=== PATIENT | male | born 1980 | race Hispanic/Latino ===

== ENCOUNTER 2023-02-01 14:58 | Inpatient (IN) | payer SELFPAY ==
[~2023-02-01 14:58] MED LIST: Iopamidol 300 61% 100 ML VIAL FS ONE
[2023-02-01 15:38] LABS: #Basophils 0.1 10x3/uL (0.0-0.2); #Eosinphils 0.1 10x3/uL (0.0-0.5); #Monocytes 0.9 10x3/uL (0.0-1.1); #Neutrophils 8.4 10x3/uL (1.5-8.4); %Basophils 0.6 % (0.0-2.0); %Eosinophils 1.1 % (0.0-6.0); %Lymphocytes 16.1 % (18.0-47.0); %Monocytes 8.2 % (0.0-10.0); %Neutrophils 73.6 % (40.0-75.0); Hematocrit 41.6 % (38.8-50.0); Hemoglobin 13.7 g/dL (13.5-17.5); Mean Corpuscular HGB CONC 32.9 g/dL (32.0-36.0); Mean Corpuscular Hemoglobin 26.4 pg (27.0-33.0); Mean Corpuscular Volume 80.2 fl (81.2-95.1); Mean Platelet Volume 10.4 fl (7.4-10.4); Platelet Count 295 10x3/uL (150-450); RBC Distribution Width 12.6 % (11.5-14.5); Red Blood Cell (RBC) Count 5.19 10x6/uL (4.32-5.72); White Blood Cell (WBC) Count 11.4 10x3/uL (3.5-10.5)
[2023-02-01 16:06] LABS: Troponin I Less than 0.010 ng/mL (< 0.028)
[2023-02-01 16:08] LABS: ALT (SGPT) 53 U/L (8-55); AST (SGOT) 31 U/L (5-34); Albumin 3.8 g/dL (3.5-5.0); Alkaline Phosphatase 72 U/L (40-110); Anion Gap 17 mmol/L (10-20); BUN (Urea Nitrogen) 10 mg/dL (8.9-20.6); Bilirubin, Total 0.5 mg/dL (0.2-1.2); Calc. Creatinine Clearance 0 mL/min (70-130); Carbon Dioxide 23 mmol/L (22-29); Chloride 102 mmol/L (98-107); Estimated GFR 111; Globulin 2.5 g/dL (2.4-3.5); Glucose 199 mg/dL (70-105); Lipase 9 U/L (8-78); Potassium 3.6 mmol/L (3.5-5.1); Protein, Total 6.3 g/dL (6.0-8.3); Sodium 138 mmol/L (136-145)
[2023-02-01 16:33] LABS: Bilirubin Neg (Negative); Blood, Urine Negative (Negative); Clarity Clear (Clear); Glucose, Urine (Dipstick) Normal (Negative); Ketone, Urine Negative (Negative); Leukocyte Negative (Negative); Nitrite Negative (Negative); Protein, Urine (Dipstick) 15 mg/dl (Neg-Trace)
[2023-02-01] MEDS ORDERED: Morphine 4 MG/ML VIAL ONE (16:33)
[2023-02-01] MEDS ORDERED: Piperacillin/Tazobactam 3.375 GM VIAL ONE (16:34)
[2023-02-01] MEDS ORDERED: Ondansetron PF 4 MG/2 ML Vial ONE ×2 (16:34→17:06)
[2023-02-01 16:50] LABS: Bacteria/HPF Rare-Few HPF (None Seen); CAUTI Indications for Culture Pelvic or flank pain; RBC/HPF 0-3 HPF (0-3); Squamous Epithelial 0-3 HPF (0-3); WBC/HPF 0-3 HPF (0-3)
[2023-02-01 16:51] LABS: Urine Culture Reflex No No
[2023-02-01] MEDS ORDERED: Promethazine HCl 25 MG/ML VIAL IM PRN (16:57)
[2023-02-01] MEDS ORDERED: PACU-Morphine 4MG/ML VIAL SLOW IVP PRN (16:57)
[2023-02-01] MEDS ORDERED: Ondansetron HCl/PF 4 MG/2 ML Vial IVP PRN (16:57)
[2023-02-01] MEDS ORDERED: Meperidine HCl/PF 25 MG/ML VIAL SLOW IVP PRN (16:57)
[2023-02-01] MEDS ORDERED: Succinylcholine 200 MG/10 ml SYRINGE FS ONE (17:06)
[2023-02-01] MEDS ORDERED: Rocuronium Bromide 10 MG/ML (10ML VIAL) ONE (17:06)
[2023-02-01] MEDS ORDERED: Lidocaine 1% PF 5 ML VIAL ONE (17:06)
[2023-02-01] MEDS ORDERED: Dexamethasone 4 mg/ml Vial ONE (17:06)
[2023-02-01] MEDS ORDERED: Glycopyrrolate 0.2 MG/ML 5 ML SYRINGE ONE (17:07)
[2023-02-01] MEDS ORDERED: PROPOFOL 40 ML ONE (17:07)
[2023-02-01] MEDS ORDERED: fentaNYL 50 mcg/mL 1 mL Vial ONE (17:07)
[2023-02-01] MEDS ORDERED: Bupivacaine HCl 0.5%/Epinephrine 1:200,000/PF 30 ml Vial ONE (17:20)
[2023-02-01] MEDS ORDERED: Ketorolac Tromethamine 30 MG/ML VIAL ONE (19:22)
[2023-02-01] MEDS ORDERED: Ondansetron PF 4 MG/2 ML Vial IVP PRN (19:28)
[2023-02-01 21:22] VITALS: BMI 32.7
[2023-02-01] MEDS ORDERED: Lactated Ringer's 1,000 ML IV SCH (22:00)
[2023-02-01] MEDS: Acetaminophen 325 MG TAB PO SCH (22:04)
[2023-02-01] MEDS: Piperacillin/Tazobactam 3.375 GM in Sodium Chloride 0.9% 100 ML IVPB SCH (22:06)
[2023-02-02] MEDS: Ketorolac Tromethamine 30 MG/ML VIAL IVP SCH ×4 (02:02→20:15)
[2023-02-02] MEDS: Acetaminophen 325 MG TAB PO SCH ×4 (04:23→20:05)
[2023-02-02] MEDS: Piperacillin/Tazobactam 3.375 GM in Sodium Chloride 0.9% 100 ML IVPB SCH ×3 (06:11→22:44)
[2023-02-03] MEDS: Acetaminophen 325 MG TAB PO SCH ×3 (03:43→10:18)
[2023-02-03] MEDS: Ketorolac Tromethamine 30 MG/ML VIAL IVP SCH ×2 (03:55→10:17)
[2023-02-03] MEDS: Piperacillin/Tazobactam 3.375 GM in Sodium Chloride 0.9% 100 ML IVPB SCH (06:43)
[2023-02-03 11:46] VITALS: BP 121/76; TEMP 98.4
== END 2023-02-03 13:15 | disposition home or self-care (01) | DRG 340 ==
LOC: CSHERS 14:58 → CSHTELE 20:29 → INTOOBSV 20:29 → OBSVTOIN 02-02 11:05
PROVIDERS: ADMIT Surgery; ATTEND Surgery
PROC: 0DTJ4ZZ Resection of Appendix, Percutaneous Endoscopic Approach (ICD-10-PCS; principal; 2023-02-02)
PROC: 0W9G4ZZ Drainage of Peritoneal Cavity, Percutaneous Endoscopic Approach (ICD-10-PCS; 2023-02-02)
DX: K35.33 Acute appendicitis with perforation, localized peritonitis, and gangrene, with abscess (principal); E66.01 Morbid (severe) obesity due to excess calories; Z82.49 Family history of ischemic heart disease and other diseases of the circulatory system; Z83.3 Family history of diabetes mellitus; Z68.32 Body mass index [BMI] 32.0-32.9, adult
CPT/HCPCS: 36415; 71045; 74177; 80053; 81001; 83605; 83690; 84484; 85025; 87040; 88304; 93005; J1100; J1650; J1885; J2270; J2405; J2543; J2704; J3010; J3490; J7120; Q9967

== ENCOUNTER 2023-02-21 23:06 | Emergency (ER) | payer SELFPAY ==
[2023-02-22 00:15] LABS: ALT (SGPT) 38 U/L (8-55); AST (SGOT) 18 U/L (5-34); Albumin 3.9 g/dL (3.5-5.0); Alkaline Phosphatase 83 U/L (40-110); Anion Gap 15 mmol/L (10-20); BUN (Urea Nitrogen) 8 mg/dL (8.9-20.6); Bilirubin, Total 0.7 mg/dL (0.2-1.2); Calc. Creatinine Clearance 0 mL/min (70-130); Calcium 9.3 mg/dL (7.8-10.44); Carbon Dioxide 23 mmol/L (22-29); Chloride 103 mmol/L (98-107); Estimated GFR 115; Globulin 3.4 g/dL (2.4-3.5); Glucose 128 mg/dL (70-105); Potassium 3.7 mmol/L (3.5-5.1); Protein, Total 7.3 g/dL (6.0-8.3); Sodium 137 mmol/L (136-145)
[2023-02-22 00:18] LABS: #Basophils 0.1 10x3/uL (0.0-0.2); #Eosinphils 0.1 10x3/uL (0.0-0.5); #Monocytes 1.4 10x3/uL (0.0-1.1); #Neutrophils 8.6 10x3/uL (1.5-8.4); %Basophils 0.5 % (0.0-2.0); %Eosinophils 0.8 % (0.0-6.0); %Lymphocytes 21.4 % (18.0-47.0); %Monocytes 10.6 % (0.0-10.0); %Neutrophils 66.4 % (40.0-75.0); Hematocrit 39.9 % (38.8-50.0); Hemoglobin 13.1 g/dL (13.5-17.5); Mean Corpuscular HGB CONC 32.8 g/dL (32.0-36.0); Mean Corpuscular Hemoglobin 26.3 pg (27.0-33.0); Mean Corpuscular Volume 80.1 fl (81.2-95.1); Mean Platelet Volume 10.8 fl (7.4-10.4); Platelet Count 267 10x3/uL (150-450); Red Blood Cell (RBC) Count 4.98 10x6/uL (4.32-5.72); White Blood Cell (WBC) Count 12.9 10x3/uL (3.5-10.5)
[2023-02-22] MEDS ORDERED: Acetaminophen 500 MG TAB ONE (00:29)
[2023-02-22 00:42] LABS: SARS-CoV-2 NAA Rapid Test Not Detected (NotDetected)
[2023-02-22 00:48] LABS: Actual Bicarbonate (HCO3v) 25.3 mEq/L (22-28); Base Excess 1.1 mEq/L (-2 - +2); Calcium, Ionized (venous) 1.13 mmol/L (1.16-1.32); Chloride (VBG) 101 mmol/L (98-106); Critical Notified By: CP.PH; Hematocrit-VBG 39 % (42.0-52.0); Hemoglobin (Hb) 13.4 g/dL (13.2-17.3); Potassium (VBG) 3.72 mmol/L (3.70-5.30); Puncture Site Other Site; Sodium 135.2 mmol/L (133-146); pH (venous) 7.435 (7.32-7.43)
== END 2023-02-22 02:45 | disposition home or self-care (01) ==
LOC: CSHERS 23:06
DX: B34.9 Viral infection, unspecified (principal); Z20.822 Contact with and (suspected) exposure to COVID-19
CPT/HCPCS: 36415; 80053; 82805; 83605; 85025; 99284